=== PATIENT | female | born 1980 | race Caucasian/White ===

== ENCOUNTER 2017-07-29 02:37 | Emergency (ER) | payer OTHER ==
[~2017-07-29] VITALS: Ht 170.2 cm; Wt 90.5 kg
[~2017-07-29 02:37] MED LIST: CYCL-1 PO; METH4TAB3 PO
[2017-07-29] MEDS ORDERED: ondansetron 4mg rapidly disintigrating tab PO ONE (03:10)
[2017-07-29] MEDS ORDERED: HYDROcodone/acetaminophen 5mg/325mg tablet PO ONE (03:10)
[2017-07-29 04:24] VITALS: BP 157/98
== END 2017-07-29 04:54 | disposition home or self-care (01) ==
LOC: ER 02:43
DX: S80.11XA Contusion of right lower leg, initial encounter (principal); Z56.0 Unemployment, unspecified; Z88.4 Allergy status to anesthetic agent; Z88.1 Allergy status to other antibiotic agents; Z88.5 Allergy status to narcotic agent; Z88.8 Allergy status to other drugs, medicaments and biological substances; W01.0XXA Fall on same level from slipping, tripping and stumbling without subsequent striking against object, initial encounter; Y93.89 Activity, other specified; Y92.89 Other specified places as the place of occurrence of the external cause; Y99.8 Other external cause status
CPT/HCPCS: 73030; 73590; 73630; 99284; A6449; L3260